=== PATIENT | female | born 1970 | race Caucasian/White ===

== ENCOUNTER 2018-10-03 15:38 | Emergency (ER) | payer OTHER ==
[2018-10-03 16:46] LABS: Pregnancy Test - Urine (BHCG) Negative (Negative); Pregu Control Background? CLEAR/WHITE (CLR/WHITE); Pregu Control Bar Appear? YES (CONTROL BAR); Specific Gravity 1.011 (1.002-1.036)
[2018-10-03 17:47] LABS: Bilirubin Negative (Negative); Blood, Urine Large (Negative); Clarity Clear (Clear); Glucose, Urine (Dipstick) Negative (Negative); Leukocyte Negative (Negative); Nitrite Negative (Negative); Protein, Urine (Dipstick) Negative (Neg-Trace); Urobilinogen 0.2 mg/dL (0.2-1.0)
[2018-10-03 17:48] LABS: Specific Gravity, Urine 1.011 (1.002-1.036)
[2018-10-03 17:53] LABS: Bacteria/HPF Rare-Few HPF (None Seen); RBC/HPF 0-3 HPF (0-3); WBC/HPF 0-3 HPF (0-3)
[2018-10-05 21:59] LABS: Chlamydia by PCR Not Detected (NotDetected); GC by PCR Not Detected (NotDetected)
== END 2018-10-03 17:55 | disposition home or self-care (01) ==
LOC: SCSER 15:38
DX: N93.9 Abnormal uterine and vaginal bleeding, unspecified (principal); F17.210 Nicotine dependence, cigarettes, uncomplicated
CPT/HCPCS: 81003; 81015; 81025; 87480; 87491; 87510; 87591; 87660; 99283

== ENCOUNTER 2019-07-06 19:50 | Emergency (ER) | payer OTHER ==
[2019-07-06] MEDS ORDERED: Acetaminophen 500 MG TAB ONE (21:16)
[2019-07-06] MEDS ORDERED: Ondansetron PF 4 MG/2 ML Vial ONE (21:16)
[2019-07-06] MEDS ORDERED: Morphine 4 MG/ML VIAL ONE (21:16)
[2019-07-06 21:46] LABS: #Eosinphils 0.1 thou/uL (0.0-0.7); #Lymphocytes 0.6 thou/uL (1.20-3.40); #Monocytes 0.3 thou/uL (0.11-0.59); #Neutrophils 6.3 thou/uL (1.40-6.50); %Basophils 0.4 % (0.0-1.0); %Eosinophils 1.3 % (0.0-10.0); %Lymphocytes 8.8 % (21.0-51.0); %Monocytes 3.5 % (0.0-10.0); Hemoglobin 14.6 g/dL (12.0-16.0); Mean Corpuscular Hemoglobin 31.6 pg (27.0-31.0); Mean Corpuscular Volume 95.6 fL (78.0-98.0); Mean Platelet Volume 8.7 fL (7.4-10.4); Platelet Count 204 thou/uL (130-400); RBC Distribution Width 11.1 % (11.5-14.5); Red Blood Cell (RBC) Count 4.62 mill/uL (4.20-5.40); White Blood Cell (WBC) Count 7.3 thou/uL (4.8-10.8)
[2019-07-06 22:06] LABS: BHCG - Serum Negative (NEGATIVE); Pregs Control Background? CLEAR/WHITE (CLR/WHITE); Pregs Control Bar Appear? YES (CONTROL BAR)
[2019-07-06 22:10] LABS: Acetaminophen Less than 6.0 mcg/mL (10.0-30.0); Alcohol Less than 10 mg/dL (Less than 10); Salicylate Less than 8.0 mg/dL (15.0-30.0)
[2019-07-06 22:11] LABS: ALT (SGPT) 117 U/L (8-55); AST (SGOT) 113 U/L (5-34); Alkaline Phosphatase 60 U/L (40-110); Anion Gap 14 mmol/L (10-20); BUN (Urea Nitrogen) 14 mg/dL (7.0-18.7); Bilirubin, Total 1.5 mg/dL (0.2-1.2); Calc. Creatinine Clearance 0 mL/min (70-130); Calcium 8.5 mg/dL (7.8-10.44); Carbon Dioxide 18 mmol/L (22-29); Chloride 106 mmol/L (98-107); Estimated GFR-MDRD 80; Globulin 3.4 g/dL (2.4-3.5); Glucose 103 mg/dL (70-105); Lipase 25 U/L (8-78); Potassium 3.1 mmol/L (3.5-5.1); Protein, Total 7.4 g/dL (6.0-8.3); Sodium 135 mmol/L (136-145)
--- NOTE | 2019-07-06 23:28 | CT ---
CT abdomen and pelvis with IV contrast HISTORY: Abdominal pain. FINDINGS: Lung bases are clear. There is mild distention of the biliary system including the gallblad jhonny, common duct, and intrahepatic biliary system. Gentle tapering to a normal caliber common duct near the ampulla of moderate. Fluid distention of the stomach. Diffuse increase in fluid throughout t he colon and, to a lesser extent the small bowel. No free air or free fluid. Solid organs are intact. Bilateral pars interarticularis defects at the lumbosacral junction with approximately 0.3 cm spondyl olisthesis. IMPRESSION: No acute abnormalities are reliably demonstrated. Mild nonspecific prominence of the bili boy system does not have the appearance of an obstruction. Large amount of fluid within the stomach and bowel. Possibly an enteritis. No evidence of bowel obstruction. 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
== END 2019-07-07 00:24 | disposition home or self-care (01) ==
LOC: ERS 19:50
DX: K52.9 Noninfective gastroenteritis and colitis, unspecified (principal); F17.210 Nicotine dependence, cigarettes, uncomplicated
CPT/HCPCS: 74177; 80053; 80307; 83690; 84703; 85025; 96361; 96374; 96375; J2270; J2405

== ENCOUNTER 2020-06-09 14:02 | Emergency (ER) | payer OTHER ==
--- NOTE | 2020-06-09 14:38 | RAD ---
EXAM: 3 views of the left shoulder HISTORY: Shoulder pain after fall COMPARISON: None FINDINGS: There is no evidence of acute fracture or dislocation of the shoulder. No degenerative sanabria ges are present. No soft tissue swelling is seen. There are displaced fractures of the left lateral fourth and fifth ribs. No large pneumothorax is visualized. IMPRESSION: Left fourth and fifth rib fractures.
[2020-06-09] MEDS ORDERED: Boostrix 0.5 ML (Tdap) VIAL ONE (14:55)
== END 2020-06-09 15:28 | disposition home or self-care (01) ==
LOC: ERS 14:02
DX: S41.012A Laceration without foreign body of left shoulder, initial encounter (principal); Z87.81 Personal history of (healed) traumatic fracture; F17.210 Nicotine dependence, cigarettes, uncomplicated; Z79.82 Long term (current) use of aspirin; W18.30XA Fall on same level, unspecified, initial encounter; Y93.39 Activity, other involving climbing, rappelling and jumping off
CPT/HCPCS: 12032; 90471; 90715

== ENCOUNTER 2021-09-21 16:13 | Emergency (ER) | payer OTHER ==
[2021-09-21 17:49] LABS: #Lymphocytes 0.9 thou/uL (1.20-3.40); #Monocytes 0.5 thou/uL (0.11-0.59); #Neutrophils 7.2 thou/uL (1.40-6.50); %Basophils 0.2 % (0.0-1.0); %Eosinophils 0.1 % (0.0-10.0); %Lymphocytes 10.6 % (21.0-51.0); %Monocytes 6.1 % (0.0-10.0); Hemoglobin 13.9 g/dL (12.0-16.0); Mean Corpuscular HGB CONC 33.5 g/dL (32.0-36.0); Mean Corpuscular Hemoglobin 33.6 pg (27.0-31.0); Mean Platelet Volume 7.7 fL (7.4-10.4); Platelet Count 163 thou/uL (130-400); RBC Distribution Width 11.7 % (11.5-14.5); Red Blood Cell (RBC) Count 4.14 mill/uL (4.20-5.40); White Blood Cell (WBC) Count 8.7 thou/uL (4.8-10.8)
[2021-09-21 18:58] LABS: ALT (SGPT) 36 U/L (8-55); AST (SGOT) 56 U/L (5-34); Albumin 3.8 g/dL (3.5-5.0); Alkaline Phosphatase 60 U/L (40-110); Anion Gap 22 mmol/L (10-20); BUN (Urea Nitrogen) 9 mg/dL (9.8-20.1); Calc. Creatinine Clearance 0 mL/min (70-130); Calcium 8.4 mg/dL (7.8-10.44); Carbon Dioxide 16 mmol/L (22-29); Chloride 96 mmol/L (98-107); Globulin 3.9 g/dL (2.4-3.5); Glucose 86 mg/dL (70-105); Potassium 4.5 mmol/L (3.5-5.1); Protein, Total 7.7 g/dL (6.0-8.3); Sodium 129 mmol/L (136-145)
[2021-09-21] MEDS ORDERED: HYDROcodone/Acetaminophen 5/325 mg Tablet ONE (20:00)
[2021-09-21] MEDS ORDERED: Dicyclomine 20 MG/2 ML VIAL ONE (20:00)
== END 2021-09-21 20:15 | disposition home or self-care (01) ==
LOC: ERS 16:13
DX: R10.84 Generalized abdominal pain (principal); F17.210 Nicotine dependence, cigarettes, uncomplicated
CPT/HCPCS: 36415; 80053; 84702; 85025; 86900; 86901; 96372; 99284; J0500

== ENCOUNTER 2021-09-22 18:59 | Inpatient (IN) | payer OTHER, SELFPAY ==
[~2021-09-22 18:59] MED LIST: Iopamidol 370 76% 100 ML VIAL ONE
[2021-09-22] MEDS ORDERED: Acetaminophen 500 MG TAB ONE ×2 (19:39→19:41)
[2021-09-22] MEDS ORDERED: Ibuprofen 200 MG TAB ONE (19:45)
[2021-09-22] MEDS ORDERED: Folic Acid 1 MG, Multivitamins, Adult 10 ML in Dextrose 5 %-0.45 % NaCl 1,000 ML IV SCH (20:30)
[2021-09-22] MEDS ORDERED: Thiamine HCl 200 MG/2 ML VIAL SLOW IVP SCH (20:30)
[2021-09-22 20:33] LABS: #Basophils 0.1 thou/uL (0.0-0.2); #Lymphocytes 1.8 thou/uL (1.20-3.40); #Monocytes 0.7 thou/uL (0.11-0.59); #Neutrophils 6.6 thou/uL (1.40-6.50); %Eosinophils 0.2 % (0.0-10.0); %Lymphocytes 19.1 % (21.0-51.0); %Neutrophils 71.7 % (42.0-75.0); Hemoglobin 14.9 g/dL (12.0-16.0); Mean Corpuscular HGB CONC 33.6 g/dL (32.0-36.0); Mean Corpuscular Hemoglobin 33.8 pg (27.0-31.0); Mean Platelet Volume 7.7 fL (7.4-10.4); Platelet Count 175 thou/uL (130-400); RBC Distribution Width 11.9 % (11.5-14.5); White Blood Cell (WBC) Count 9.2 thou/uL (4.8-10.8)
[2021-09-22] MEDS ORDERED: Lorazepam 2 MG/ML VIAL ONE (20:34)
[2021-09-22] MEDS ORDERED: Vancomycin 1 GM/200 ML BAG ONE (20:35)
[2021-09-22 20:53] LABS: Acetaminophen Less than 6.0 mcg/mL (10.0-30.0); Alcohol 12 mg/dL (Less than 10); Salicylate Less than 8.0 mg/dL (15.0-30.0)
[2021-09-22 20:54] LABS: ALT (SGPT) 32 U/L (8-55); AST (SGOT) 52 U/L (5-34); Albumin 3.9 g/dL (3.5-5.0); Alkaline Phosphatase 65 U/L (40-110); Anion Gap 17 mmol/L (10-20); BUN (Urea Nitrogen) 8 mg/dL (9.8-20.1); Bilirubin, Total 0.6 mg/dL (0.2-1.2); Calc. Creatinine Clearance 0 mL/min (70-130); Calcium 8.9 mg/dL (7.8-10.44); Carbon Dioxide 20 mmol/L (22-29); Chloride 94 mmol/L (98-107); Globulin 4.3 g/dL (2.4-3.5); Glucose 86 mg/dL (70-105); Potassium 3.4 mmol/L (3.5-5.1); Protein, Total 8.2 g/dL (6.0-8.3); Sodium 128 mmol/L (136-145)
[2021-09-22] MEDS ORDERED: SODIUM CHLORIDE 0.9% IVPB SCH (21:15)
[2021-09-22] MEDS ORDERED: CEFTRIAXONE ROCEPHIN IVPB SCH (21:15)
[2021-09-22] MEDS ORDERED: Ondansetron PF 4 MG/2 ML Vial IVP PRN (22:58)
[2021-09-22] MEDS ORDERED: Acetaminophen 325 MG TAB PO PRN (22:58)
[2021-09-22] MEDS ORDERED: Lorazepam 2 MG/ML VIAL IM PRN (23:09)
[2021-09-22] MEDS ORDERED: Lorazepam 1 MG TAB PO PRN (23:09)
[2021-09-22] MEDS ORDERED: Electrolyte Replacement Protocol 1 EACH FS SCH (23:15)
[2021-09-22] MEDS ORDERED: Magnesium 2 GM/50 ML 2 GM in Premix Bag 1 BAG IVPB SCH (23:30)
[2021-09-22 23:31] LABS: SARS-CoV-2 NAA Rapid Test Not Detected (NotDetected)
[2021-09-22 23:59] LABS: Magnesium 1.8 mg/dL (1.6-2.6)
[2021-09-23] MEDS ORDERED: Potassium Chloride 20 MEQ TAB ONE (00:40)
[2021-09-23 00:46] LABS: Amphetamine Detected (NotDetected); Barbiturates Screen Not Detected (NotDetected); Benzodiazepine Screen Not Detected (NotDetected); Cocaine Metabolite Screen Not Detected (NotDetected); Methadone Not Detected (NotDetected); Methamphetamine Detected (NotDetected); Opiate Screen Not Detected (NotDetected); Oxycodone Screen Not Detected (NotDetected); Phencyclidine (PCP) Not Detected (NotDetected); THC/Cannabinoid Screen Detected (NotDetected); Tricyclic Screen Not Detected (NotDetected)
[2021-09-23] MEDS: Lorazepam 1 MG TAB PO SCH ×3 (02:19→14:57)
[2021-09-23 04:21] VITALS: BMI 23.3
[2021-09-23 04:27] LABS: #Lymphocytes 1.7 thou/uL (1.20-3.40); #Monocytes 0.7 thou/uL (0.11-0.59); #Neutrophils 3.8 thou/uL (1.40-6.50); %Basophils 0.3 % (0.0-1.0); %Eosinophils 0.7 % (0.0-10.0); %Lymphocytes 27.4 % (21.0-51.0); %Monocytes 11.6 % (0.0-10.0); %Neutrophils 60.1 % (42.0-75.0); Hemoglobin 13.4 g/dL (12.0-16.0); Mean Corpuscular HGB CONC 33.3 g/dL (32.0-36.0); Mean Corpuscular Hemoglobin 33.5 pg (27.0-31.0); Platelet Count 161 thou/uL (130-400); RBC Distribution Width 11.8 % (11.5-14.5); Red Blood Cell (RBC) Count 4.01 mill/uL (4.20-5.40); White Blood Cell (WBC) Count 6.4 thou/uL (4.8-10.8)
[2021-09-23 04:44] LABS: ALT (SGPT) 27 U/L (8-55); AST (SGOT) 42 U/L (5-34); Albumin 3.3 g/dL (3.5-5.0); Alkaline Phosphatase 55 U/L (40-110); Anion Gap 13 mmol/L (10-20); BUN (Urea Nitrogen) 6 mg/dL (9.8-20.1); Bilirubin, Total 0.7 mg/dL (0.2-1.2); Calc. Creatinine Clearance 101 mL/min (70-130); Calcium 8.2 mg/dL (7.8-10.44); Carbon Dioxide 19 mmol/L (22-29); Chloride 106 mmol/L (98-107); Globulin 3.7 g/dL (2.4-3.5); Glucose 110 mg/dL (70-105); Potassium 3.2 mmol/L (3.5-5.1); Sodium 135 mmol/L (136-145)
[2021-09-23 06:12] LABS: Bacteria/HPF None Seen HPF (None Seen); Bilirubin Negative (Negative); Blood, Urine Negative (Negative); Clarity Clear (Clear); Glucose, Urine (Dipstick) Normal (Negative); Ketone, Urine Negative (Negative); Leukocyte 75 Leu/uL (Negative); Nitrite Negative (Negative); Protein, Urine (Dipstick) Negative (Neg-Trace); RBC/HPF 0-3 HPF (0-3); Specific Gravity, Urine 1.019 (1.002-1.036); Squamous Epithelial 0-3 HPF (0-3); Urobilinogen Normal mg/dL (Less than 2)
[2021-09-23] MEDS ORDERED: Multivit, Therapeutic 1 TAB PO SCH (09:00)
[2021-09-23] MEDS ORDERED: Folic Acid 1 MG TAB PO SCH (09:00)
[2021-09-23] MEDS ORDERED: Oseltamivir 75 MG CAP PO SCH (09:00)
[2021-09-23] MEDS ORDERED: Enoxaparin Sodium 40 MG/0.4 ML SYRINGE SC SCH (09:00)
[2021-09-23 11:30] VITALS: BP 104/75; TEMP 98.3
[2021-09-23] MEDS ORDERED: Thiamine HCl 200 MG/2 ML VIAL SLOW IVP SCH (21:00)
[2021-09-23] MEDS ORDERED: Lorazepam 1 MG TAB PO PRN (23:09)
[2021-09-24] MEDS ORDERED: Lorazepam 1 MG TAB PO PRN (23:09)
[2021-09-25] MEDS ORDERED: Lorazepam 0.5 MG TAB PO SCH (06:00)
[2021-09-25] MEDS ORDERED: Lorazepam 0.5 MG TAB PO PRN (23:09)
[2021-09-26] MEDS ORDERED: Thiamine 100 MG TAB PO SCH (09:00)
[2021-09-26] MEDS ORDERED: FLU VACC QS2021-22(6MOS UP)/PF 60 MCG/0.5 ML SYRINGE IM ONE (09:00)
== END 2021-09-23 14:50 | disposition left against medical advice (07) | DRG 193 ==
LOC: ERS 18:59 → 2NO 22:42
PROVIDERS: ADMIT Internal Medicine; ATTEND Family Medicine
DX: J10.00 Influenza due to other identified influenza virus with unspecified type of pneumonia (principal); G92.8 Other toxic encephalopathy; E87.1 Hypo-osmolality and hyponatremia; Z20.822 Contact with and (suspected) exposure to COVID-19; E87.6 Hypokalemia; F10.10 Alcohol abuse, uncomplicated; F12.10 Cannabis abuse, uncomplicated; F15.10 Other stimulant abuse, uncomplicated; M89.9 Disorder of bone, unspecified; F17.210 Nicotine dependence, cigarettes, uncomplicated; Z88.2 Allergy status to sulfonamides; Z91.19 Patient's noncompliance with other medical treatment and regimen
CPT/HCPCS: 0240U; 36415; 36416; 70450; 71045; 71260; 74177; 80053; 80306; 80307; 81003; 81015; 83605; 83735; 83930; 83935; 84300; 85025; 86140; 87040; 87086; 93005; J0696; J2060; J3370; J3411; J3475; J3490; J7042; Q9967